=== PATIENT | male | born 1955 | race Caucasian/White ===

== ENCOUNTER 2024-02-26 20:00 | Inpatient (IN) | payer BC, SELFPAY ==
[2024-02-26] VITALS (8 sets, daily range): BP systolic 123–148; BP diastolic 64–89; BMI 24.8
[2024-02-26 12:38] LABS: % Basophils 0.8 % (0-2); % Eosinophils 0.6 % (0-6); % Immature Granulocytes 0.4 % (0-0.5); % Lymphocytes 7.9 % (20.5-51.1); % Monocytes 4.8 % (1.7-9.3); % Neutrophils 85.5 % (42.2-75.2); Absolute Basophils 0.1 10^3/uL (0-0.2); Absolute Eosinophils 0.1 10^3/uL (0-0.7); Absolute Lymphocytes 0.6 10^3/uL (1.2-3.4); Absolute Monocytes 0.4 10^3/uL (0.1-0.6); Absolute Neutrophils 6.8 10^3/uL (1.4-6.5); Hematocrit 38.5 % (39.0-52.0); Hemoglobin 13.5 g/dL (13.0-18.0); Mean Corp Hgb Conc. 35.1 g/dL (33.0-37.0); Mean Corpuscular Hgb 34.2 pg (27.0-31.0); Mean Corpuscular Volume 97.5 fL (80.0-94.0); Mean Platelet Volume 10.1 fL (7.4-10.4); Nucleated Red Blood Cells % 0 % (-); Platelet Count 224 10^3/uL (130-400); Red Blood Cell Count 3.95 10^6/uL (4.70-6.10)
--- NOTE | 2024-02-26 12:42 | ED.PDOC.TRB ---
ED Provider Triage
-
Patient seen by provider in Triage?: Seen in Triage
A medical screening examination has been initiated by a qualified medical provider. Based on the assessment performed at this time, it has been determined that an emergent medical condition may exist and the patient has been informed that further
medical evaluation and possible additional diagnostic testing may be needed.
HPI: This is a medical evaluation conducted in person to initiate diagnostic evaluation and provide initial therapeutics. Please see further documentation by the treating clinician.
GENERAL: Alert ,tearful
EYE: No visual abnormalities.
NECK: Trachea midline
ENT: No visible abnormalities.
LUNGS: No acute respiratory distress
NEUROLOGICAL: Alert and oriented
SKIN: no visible lesions.
MUSCULOSKELETAL: Moving extremities normally
PSYCH: Normal and appropriate interaction.
68-year-old male presenting to the emergency department fluctuating abdominal pain earlier today. He claims that the pain is diffuse and feels somewhat similar to previous bowel obstructions he has had in the past. Mild pain tenderness when
palpating the abdomen. Denies associated nausea vomiting. Denies any flatus this morning. Denies any chest pain or shortness of breath. CT scan was ordered for further assessment. Patient also is significantly. Pain medication was ordered as
well.
[2024-02-26] MEDS: ZOFRAN 4 MG IV (12:43)
[2024-02-26] MEDS: DILAUDID 1 MG IV ×4 (12:43→23:53)
[2024-02-26] MEDS: NSS 500 IV (12:43)
[2024-02-26 12:53] LABS: ALT (SGPT) 24 U/L (0-50); AST (SGOT) 27 U/L (17-59); Albumin 4.2 g/dl (3.5-5.0); Alkaline Phosphatase 63 U/L (38-126); Blood Urea Nitrogen 15 mg/dl (9-20); Calcium 9.6 mg/dl (8.4-10.2); Carbon Dioxide 23 mmol/L (22-30); Chloride 107 mmol/L (98-107); Estimated Creatinine Clearance 77 ml/min; Glucose 120 mg/dl (70-99); Lipase 59 U/L (23-300); Sodium 139 mmol/L (135-145); Total Protein 6.5 g/dl (6.3-8.2); eGFR > 60.00
--- NOTE | 2024-02-26 13:16 | ED.GENMED ---
History of Present Illness
General
Chief Complaint: Abdominal Pain
Source: patient
Exam Limitations: none
Time Seen by Provider: 02/26/24 13:05
Nursing documentation reviewed up to this point in time: agreed with
History of Present Illness
History of Present Illness:
68 y/o M with h/o remote SBO (? volvulus) s/p partial resection
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
pt has had nausea, no vomiting, diarrhea, urinary symptoms
last bm this morning
unable to pass gas, usually has a lot of gas
no chest pain, sob, fever, chills
thinks this may be similar to previous bowel obstruction
Past History
Past History
ED Past Medical History: Other (SBO)
ED Past Surgical History: Bowel resection
Social History
Tobacco: Non-smoker
Review of Systems
Review of Systems
Allergies reviewed?: Yes
All Other Systems: Not applicable
Phy Exam
Physical Exam
Physical Exam:
GENERAL: Alert , in no apparent distress
EYE: pupils equal and reactive
NECK: Supple
ENT: o/p clr, mmm.
CARDIAC: Regular rate and rhythm .
LUNGS: Clear breath sounds bilaterally, no acute respiratory distress, no wheezes/rales/rhonchi
ABDOMEN: Soft, mild distention, questionable ventral hernia palpated, easily reduced, d hypoactive bowel sounds, nontender
NEUROLOGICAL: Alert and oriented, no focal neuro deficits
SKIN: Warm and dry, skin intact. Pale
MUSCULOSKELETAL: No edema, well perfused.
PSYCH: Normal and appropriate interaction.
Course
Orders/Labs/Results
Orders:
Orders
02/26/24 12:26
CMP [Comprehensive Metabolic Panel] Urgent
Complete Blood Count/With Diff Urgent
Lipase Urgent
02/26/24 12:32
0.9% Sodium Chloride 500 ml [Nss] 500 ml IV BOLUS
HYDROmorphone [Dilaudid] 1 mg IV NOW STA
Ondansetron Injectable [Zofran] 4 mg IV NOW STA
02/26/24 12:34
CT Abd/Pel (IV only)-DH only Urgent
Comment:
Reason For Exam: diffuse abd pain
02/26/24 13:36
Electrocardiogram (*1) Urgent
Reason for Study: Abdominal Pain
EKG- Treatment ONCE
02/26/24 13:48
Urinalysis Reflex To Culture Urgent
Date Specimen was Collected: 02/26/24
Time Specimen was Collected: 13:46
02/26/24 15:34
0.9% Sodium Chloride 1000 ml [Nss] 1,000 ml IV BOLUS
02/26/24 15:37
Lactic Acid Urgent
02/26/24 15:47
HYDROmorphone [Dilaudid] 1 mg IV NOW STA
02/26/24 15:49
Consult Surgery [SURGICAL CONSULT] Urgent
Consulting Provider: Stef Finney
Was physician already notified: Yes
02/26/24 16:31
NG Tube [GI tube insertion- Treatment] ONCE
02/26/24 16:57
Admit Patient As Directed
Co-Sign Provider:
Level of Care: Inpatient admission
Assign to:: Medical/Surgical
Physician / Group: Reg
Diagnosis: SBO
Reason for Hospitalization: SBO
Expected length of stay greater than two midnights?: Yes
ELOS- Estimated Length of Stay in days: 3
I certify the patient meets the requirements for IP care: Yes
Code Status As Directed
Resuscitation Status: Full Code
Acetaminophen 1000MG/100Ml [Ofirmev] 1,000 mg in 100 ml IV Q6HPRN
Acetaminophen IV Indication:: Ileus/Delayed Bowel Func.
HYDROmorphone [Dilaudid] 0.5 mg IV Q2HPRN PRN
HYDROmorphone [Dilaudid] 1 mg IV Q2HPRN PRN
Ondansetron Injectable [Zofran] 4 mg IV Q6HPRN PRN
Activity As Directed
Activity Level: Out of Bed-Early Mobility
Anti-embolism (ABA) Hose As Directed
Type: Thigh high
Intake/ Output As Directed
Frequency: Per unit guidelines
NG Tube [Gastrointestinal Tubes] As Directed
Type: [place] sump
To suction?: Yes
Type of suction: Low intermittent
Directions to clamp NG tube: OK to clamp for ambulation
Irrigate tube?: No
Vital Signs As Directed
Frequency: Per unit guidelines
PRN Pain Medication Management As Directed
May give lesser potent ordered pain med per pt: Yes
preference::
Protocol:: Medication orders for pain may be administered in a
manner that supports deferring to patient preference
when the pt is:
- Requesting an ordered lesser potent pain medication.
Least to most potent pain medications are defined
as: acetaminophen < NSAID < tramadol < opioids
(morphine, oxycodone, hydromorphone).
- Requesting a lesser dose of the same medication IF
ORDERED.
- Requesting a less intrusive route of administration
if both routes are prescribed by the provider (PO <
IV).
02/26/24 16:59
Pneumatic Compression Sleeves As Directed
Type: Knee high
DX Deep Vein Thrombosis Video Routine
02/26/24 17:00
KCl 20 Meq/D5.45%Sodchl 1000ML [D5/0.45%NSS with KCL 20 MEQ] 20 meq in 1,000 ml IV 125 mls/hr
02/26/24 18:00
Enoxaparin Sodium [Lovenox] 40 mg SC QPM
02/27/24 05:32
Basic Metabolic Panel IN AM
Complete Blood Count/No Diff IN AM
02/27/24 Breakfast
NPO
Allow oral meds: No
Allow clear liquids: No
NPO with Ice Chips: Yes
Abnormal Lab Results
02/26/24
12:26
RBC 3.95 L 10^6/uL
(4.70-6.10)
Hct 38.5 L %
(39.0-52.0)
MCV 97.5 H fL
(80.0-94.0)
MCH 34.2 H pg
(27.0-31.0)
Absolute Neuts (auto) 6.8 H 10^3/uL
(1.4-6.5)
Absolute Lymphs (auto) 0.6 L 10^3/uL
(1.2-3.4)
Neutrophils % 85.5 H %
(42.2-75.2)
Lymphocytes % 7.9 L %
(20.5-51.1)
Glucose 120 H mg/dl
(70-99)
Total Bilirubin 3.0 H mg/dl
(0.2-1.3)
02/26/24 12:26
02/26/24 12:26
Vital Signs
Initial and Last Documented VS:
Initial Vital Signs
Temp Pulse Resp BP Pulse Ox
97.6 F 54 18 123/84 99
02/26/24 12:16 02/26/24 12:16 02/26/24 12:16 02/26/24 12:16 02/26/24 12:16
Last Documented Vital Signs
Temp Pulse Resp BP Pulse Ox
98.6 F 83 12 103/79 95
02/27/24 16:30 02/27/24 16:30 02/27/24 16:30 02/27/24 16:30 02/27/24 16:30
MDM/Problems Addressed
Differential Diagnosis Includes:
ACS, AAA, bowel obstruction, kidney stone
MDM/Problems Addressed:
68 y/o M with h/o remote bowel obstruction (sounds like he had an internal hernia then too, had partial resection)
started with abd pain this morning at 930 with distension; no vomiting; pain was severe on arrival; he has distension but it is soft, nontender after pain meds when i saw him and dec bowel sounds
stable vitals
ct shows:IMPRESSION:
1. Small bowel obstruction as detailed above. Mildly dilated gas-filled loops of small bowel in the anterior abdomen, anterior to the transverse colon. In the right abdomen, there is swirling of small bowel loops and mesenteric vessels, internal
hernia is a consideration. There are also significant mesenteric edematous changes, therefore strangulation is a differential consideration. No pneumatosis or pneumoperitoneum is identified.
2. 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
i spoke with dr. finney from surgery who requested NGT and to be admitted for his service.
*Critical Care Note
Total Time (30-74mins, 75-104mins- exclusive of procedures): Not Applicable
ED Attending Note
-
Portions of this chart may have been created with voice recognition software.� Occasional wrong word or��sound alike� substitutions may have occurred due to the inherent limitations of voice recognition software.
Discharge Plan
Departure
Patient Disposition: Admit
Date of Disposition: 02/26/24
Time of Disposition: 16:06
Admit to: Med/Surg
Presentation/result/management discussed w/ accepting /: reg
Condition: Fair
Covid-19: Not Applicable
Discharge Problem:
Internal hernia, SBO (small bowel obstruction)
Interventions
Interventions:
*Risk Screen - Suicide Last Done: 02/26/24 12:53
*General Assessment Last Done: 02/26/24 12:53
*Neglect/Abuse Screening Last Done: 02/26/24 12:53
ED- Fall Risk Assessment Last Done: 02/26/24 12:53
*ED COVID-19 Vaccine History Last Done: 02/26/24 12:16
*Nursing Disposition Last Done: 02/27/24 13:22
VJ-Pirdmy-Eqspxsulgt Assessment Last Done: 02/26/24 12:53
Discharge Date and Time
Discharge Date/Time: 02/27/24 13:15
[2024-02-26 14:03] LABS: Urine Albumin Negative (Neg - Trace); Urine Bilirubin Negative (Negative); Urine Character Clear (Clear); Urine Color Yellow; Urine Glucose Negative (Negative); Urine Ketone Negative (Negative); Urine Leukocyte Negative (Negative); Urine Nitrite Negative (Negative); Urine Occult Blood Negative (Negative); Urine Specific Gravity 1.015 (<1.030); Urine Urobilinogen Negative (Neg - 1+)
[2024-02-26] MEDS: NSS 1000 IV (15:39)
[2024-02-26 16:12] LABS: Lactic Acid 0.8 mmol/L (0.7-2.0)
--- NOTE | 2024-02-26 17:02 | CON.GS ---
Consultation
-
Requesting Provider: Jose
Performing Provider: Reg
Reason for Consultation: SBO
Medical History
-
Chief Complaint: Abd pain
History of Present Illness:
68M with acute onset abd pain that began this am around 9:30. The pain was progressive, severe, localized to upper abd, with radiation to his back. He endorses nausea earlier though he denies it presently. He denies vomiting. He denies f/c. Last BM
this am was normal. No flatus since then. Presently he says his pain is resolved.
Past Medical History
Past Medical History: GERD, Psychiatric (ADHD) and Other (BPH)
Past Surgical History: Other (ex-lap with bowel resection for SBO (remote))
Social History
Tobacco: Non-Smoker
Drug: None
Personal:
Living: With Family
Family History
Family History: Reviewed & Noncontributory
Allergies / Home Medications
Allergy/AdvReac Type Severity Reaction Status Date / Time
bacitracin Allergy Rash Verified 02/26/24 12:22
[From Neosporin
([id number])]
latex Allergy Rash Verified 02/26/24 12:22
neomycin [Neomycin] Allergy rash, Verified 02/26/24 12:22
itching
polymyxin B Allergy Rash Verified 02/26/24 12:22
[From Neosporin
([id number])]
�Medication �Instructions �Recorded �Confirmed �Type
cetirizine 10 mg tablet (Zyrtec) 10 mg PO DAILYPRN PRN allergies 02/26/24 02/26/24 History
cholecalciferol (vitamin D3) 50 50 mcg PO DAILY 02/26/24 02/26/24 History
mcg (2,000 unit) tablet (Vitamin
D3)
cyanocobalamin (vitamin B-12) 1,000 mcg PO DAILY 02/26/24 02/26/24 History
1,000 mcg tablet
famotidine 40 mg tablet 40 mg PO HS 02/26/24 02/26/24 History
finasteride 5 mg tablet 5 mg PO DAILY 02/26/24 02/26/24 History
methylphenidate HCl 36 mg 36 mg PO DAILY 02/26/24 02/26/24 History
tablet,extended release 24 hr
tamsulosin 0.4 mg capsule 0.4 mg PO DAILY 02/26/24 02/26/24 History
Review of Systems
-
A 10 point review of systems was completed, and was negative except as per HPI.
Physical Exam
Vital Signs
Temp Pulse Resp BP Pulse Ox
97.6 F 62 18 136/86 97
02/26/24 12:16 02/26/24 14:00 02/26/24 14:00 02/26/24 15:51 02/26/24 15:52
02/25/24 02/26/24 02/27/24
06:59 06:59 06:59
Actual Weight 87.543 kg
Body Mass Index (BMI) 24.8
Lab Results
02/26/24 12:26
02/26/24 12:26
WBC 8.0 10^3/uL (4.8-10.8) 02/26/24 12:26
Hgb 13.5 g/dL (13.0-18.0) 02/26/24 12:26
Hct 38.5 % (39.0-52.0) L 02/26/24 12:26
Plt Count 224 10^3/uL (130-400) 02/26/24 12:26
Abs Immat Gran (auto) 0.0 10^3/uL (0-0.05) 02/26/24 12:26
Neutrophils % 85.5 % (42.2-75.2) H 02/26/24 12:26
Physical Exam
General: Well Developed, Well Nourished and No Apparent Distress
HEENT: Normocephalic and Anicteric
GI: Soft, Non Tender and Distended (mildly distended)
Skin: Warm and Dry
Neuro: AO x 3
Psych: Calm
Data Reviewed
-
CT Scan: Image Personally Visualized and interpreted, Report Reviewed by me, Discussed with Physician, Discussed with Patient and Discussed with Family
Labs: Labs Reviewed by me, Discussed with Physician, Discussed with Patient and Discussed with Family
Assessment / Plan
-
68M with pSBO likely from adhesions
Abd exam totally benign other than very mild distention, absolutely no ttp
Labs essentially unremarkable (Tbili 3.0 noted, likely Gilbert's)
CT A/P with LUQ process involving small bowel, apparent transition point in this area and edematous appearing mesentery without pneumatosis, PV gas or free air, severely distended stomach
Given how benign his exam is, and lack of pain, will defer surgery for now
Plan:
Admit to surgery
Recommend NGT to LIWS
NPO/IVF
PRN pain meds and anti-emetics
DVT ppx
Am labs
[2024-02-26] MEDS: LOVENOX 40 MG SC (17:48)
[2024-02-26] MEDS: D5/0.45%NSS with KCL 20 MEQ 1000 IV (17:49)
[2024-02-26] MEDS: DILAUDID 0.5 MG IV ×2 (17:56→22:12)
[2024-02-27] VITALS (16 sets, daily range): BP systolic 103–139; BP diastolic 60–89
[2024-02-27] MEDS: D5/0.45%NSS with KCL 20 MEQ 1000 IV ×2 (01:34→10:04)
[2024-02-27] MEDS: ZOFRAN 4 MG IV ×2 (01:58→09:52)
[2024-02-27] MEDS: DILAUDID 1 MG IV ×2 (01:58→04:01)
[2024-02-27] MEDS: OFIRMEV 100 IV (02:13)
--- NOTE | 2024-02-27 02:24 | EDRN ---
This RN informed admitting team that pt. has been consistently c/o lower abdominal pain and has been requesting PRN pain medications, as pt. had not been c/o pain when surgery evaluated pt. Admitting is aware.
[2024-02-27 06:22] LABS: Hematocrit 40.1 % (39.0-52.0); Hemoglobin 13.8 g/dL (13.0-18.0); Mean Corp Hgb Conc. 34.4 g/dL (33.0-37.0); Mean Corpuscular Hgb 33.9 pg (27.0-31.0); Mean Corpuscular Volume 98.5 fL (80.0-94.0); Mean Platelet Volume 10.4 fL (7.4-10.4); Platelet Count 255 10^3/uL (130-400); Red Blood Cell Count 4.07 10^6/uL (4.70-6.10); Red Cell Dist. Width 12.2 % (11.5-14.5); White Blood Cell Count 13.5 10^3/uL (4.8-10.8)
[2024-02-27 07:38] LABS: Blood Urea Nitrogen 16 mg/dl (9-20); Calcium 8.8 mg/dl (8.4-10.2); Carbon Dioxide 23 mmol/L (22-30); Chloride 105 mmol/L (98-107); Estimated Creatinine Clearance 94 ml/min; Glucose 181 mg/dl (70-99); Potassium 5.1 mmol/L (3.5-5.1); Sodium 137 mmol/L (135-145); eGFR > 60.00
[2024-02-27 08:10] LABS: Hepatitis C Antibody Negative (Negative)
[2024-02-27] MEDS: OMNIPAQUE 50 ML PO (09:42)
[2024-02-27] MEDS: DILAUDID 0.5 MG IV ×2 (10:07→15:57)
--- NOTE | 2024-02-27 10:58 | PTCARENOTE ---
surgery notified pt struggling to tolerate contrast through NG
--- NOTE | 2024-02-27 11:14 | W.PN.GS2 ---
Today's Communication / Plan
-
Rpt CT
Assessment / Plan
-
68M with intermittent abd pain and concern for SBO
WBC trending up
Unclear why his pain comes and goes this way, will proceed with PO contrast CT
Further mgmt will be guided by his pain and imaging findings
Subjective Data
-
Date of Service: February 27, 2024
AFVSS, after my encounter yesterday he developed pain that lasted through most of the night, he fell asleep at 4am and woke up pain free at 7am. Presently he denies pain. He has not passed gas. He dneies n/v with NGT to suction.
Objective Data
-
Intake and Output
02/26/24 02/27/24 02/28/24
06:59 06:59 06:59
Output Total 200 / 200
Balance -200 / -200
Output:
Urine, Voided 200 / 200
Vital Signs
Temp Pulse Resp BP Pulse Ox
98.1 F 59 10 129/84 98
02/27/24 07:00 02/27/24 07:00 02/27/24 07:00 02/27/24 07:00 02/27/24 08:47
Lab Results
02/27/24 05:32
02/27/24 05:32
Calcium 8.8 mg/dl (8.4-10.2) 02/27/24 05:32
Total Bilirubin 3.0 mg/dl (0.2-1.3) H 02/26/24 12:26
AST 27 U/L (17-59) 02/26/24 12:26
ALT 24 U/L (0-50) 02/26/24 12:26
Alkaline Phosphatase 63 U/L (38-126) 02/26/24 12:26
Total Protein 6.5 g/dl (6.3-8.2) 02/26/24 12:26
Albumin 4.2 g/dl (3.5-5.0) 02/26/24 12:26
Physical Exam
-
Gen: NAD
Abd: soft, nt, nd, NGT canister clear/pale yellow
--- NOTE | 2024-02-27 12:52 | W.PN.SURGUPD ---
Surgical Update
Surgical Update
Patient with worsening episodes of abdominal pain, nausea, and vomiting over the past 24 hours. Abdominal exam remains relatively benign with soft and minimal tenderness, distention noted, nonperitoneal. AVSS. Elevated WBC, normal lactate.
Repeat CT scan imaging demonstrates worsening small bowel distention with increased ascites, swelling of the mesentery concern for need for a closed-loop obstruction.
Recommend and plan for surgical management. Plan for exploratory laparotomy, lysis of adhesions, possible bowel resection. The procedure itself, as well as the risks, benefits, and alternatives was discussed. Specifically, we discussed the risks
of bleeding, infection, injury to surrounding structures (bowel), wound complications, hernia formation, and the general anesthetic complications. Typical postprocedural recovery including delayed return of bowel function and the need for 4 weeks
no heavy lifting was discussed. All questions answered. Consent signed.
--- NOTE | 2024-02-27 12:55 | W.SUR.PREOP ---
Pre-Operative Surgical Note
-
I have examined this patient prior to the performance of the scheduled procedure.
The patient's condition is unchanged from the time of the current History and
Physical and the patient is able to undergo the scheduled procedure.
--- NOTE | 2024-02-27 13:15 | PTCARENOTE ---
Patient transferred to OR
--- NOTE | 2024-02-27 15:25 | W.IMMPOSTOP ---
Addendum entered and electronically signed by Tom Mliler MD 02/27/24 15:59:
[facility]# [id number]
Original Note:
Surgical Immed Post Op Note
-
Primary Surgeon: Angela
Assisting Surgeon: AJ Rainey
Pre-op Diagnosis: SBO
Post-op Diagnosis: SBO
Procedure Performed: Exploratory laparotomy, lysis of adhesions, primary ventral incisional hernia repair
Anesthesia Type: General
Specimen / Cultures: None
Estimated Blood Loss: 7 cc
Complications: None
Operative Findings:
1. Markedly dilated stomach and small bowel, omental band adhesion causing closed loop obstruction
2. 100 cm segment of excoriated SB, viable, proximal transition point pinched but SB contents milked distally without significant stricturing, no resection performed due to concern for remaining SB ~200 cm
3. SB run from LT to distal anastomosis (adhesions within this area, limited lysis performed)
4. 2 cm ventral incisional hernia containing omentum, closed primarily with fascial closure
[2024-02-27] MEDS: NSS 1000 IV ×2 (16:05→22:55)
[2024-02-27] MEDS: TORADOL 10 MG IV (16:47)
--- NOTE | 2024-02-27 17:10 | PTCARENOTE ---
Pt arrived to [facility] [address] s/p SBO. Pt AAOx3, R zeyade NGT to LIWS suctioning dark green/brown, Mitchell in place draining yellow urine, midline incision aquacel dressing with small amount of drainage. Pt states mild pain at this time, no nausea. Pt oriented
to call jiang and room, bed locked and in lowest position, call jiang within reach.
--- NOTE | 2024-02-27 17:14 | CM ---
CM reviewed patient's chart. Spoke with patient at bedside. CM introduced self and role. Patient with NGT to suctioning.
PCP: Dr. Dominic Rankin
Pharmacy: [facility] in [facility]
Living situation: Patient lives with his . He lives in a mulit-level home. 2 steps to enter.
Finances: Patient denies any social insecurities. John is able to afford her housing, clothing, medications, food, utilities and transportation. 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
DME/Ambulation: Patient ambulates independently. He does not own any DME.
Transportation: Patient's will provide transportation once he is discharged. Patient drives.
Agreeable to home health care?: Yes, if needed.
ANTICIPATED DISCHARGE DISPOSITION:
Return to home with once he cleared medically and post-operatively.
CM will continue to follow case and available for further assistance.
[2024-02-27] MEDS: LOVENOX 40 MG SC (17:49)
[2024-02-27] MEDS: PROTONIX IV 40 MG IV (17:50)
[2024-02-27] MEDS: NSS (PRESERVATIVE FREE) 10 ML IV (17:50)
[2024-02-28 03:11] VITALS: BP 113/68
[2024-02-28] MEDS: TORADOL 10 MG IV ×2 (07:05→17:31)
[2024-02-28] MEDS: NSS 1000 IV ×3 (07:10→22:59)
[2024-02-28 07:29] VITALS: BP 135/75
[2024-02-28] MEDS: PROTONIX IV 40 MG IV (07:52)
[2024-02-28 07:54] LABS: Hemoglobin 13.9 g/dL (13.0-18.0); Mean Corp Hgb Conc. 33.9 g/dL (33.0-37.0); Mean Corpuscular Hgb 34.4 pg (27.0-31.0); Mean Corpuscular Volume 101.5 fL (80.0-94.0); Mean Platelet Volume 10.3 fL (7.4-10.4); Platelet Count 226 10^3/uL (130-400); Red Blood Cell Count 4.04 10^6/uL (4.70-6.10); Red Cell Dist. Width 12.5 % (11.5-14.5); White Blood Cell Count 10.9 10^3/uL (4.8-10.8)
[2024-02-28] MEDS: NSS (PRESERVATIVE FREE) 10 ML IV (07:57)
[2024-02-28 08:17] LABS: Blood Urea Nitrogen 20 mg/dl (9-20); Calcium 8.4 mg/dl (8.4-10.2); Carbon Dioxide 27 mmol/L (22-30); Chloride 105 mmol/L (98-107); Estimated Creatinine Clearance 77 ml/min; Glucose 98 mg/dl (70-99); Potassium 4.5 mmol/L (3.5-5.1); Sodium 138 mmol/L (135-145); eGFR > 60.00
--- NOTE | 2024-02-28 10:00 | W.PN.GS2 ---
Addendum entered and electronically signed by Stef Finney MD 02/28/24 10:44:
I saw and examined the patient.
The Steam Conditioning Operator's note was reviewed and I agree with the note.
Comment: Expected post-op ileus, stable, pain controlled, comfortable, exam soft approp ttp aquacel OK, Plan: cont NGT/NPO/IVF, await KATI BRYAN tomorrow
Original Note:
Today's Communication / Plan
-
C/W NGT/NPO/IVF
Assessment / Plan
-
68M p/w with small bowel obstruction
POD #1 Ex lap with CONRAD and primary ventral hernia repair
AFVSS
WBC trending back down, h/h stable post op
Await bowel recovery
--NPO with ice chips for comfort
--C/W NGT to suction
--Analgesics/antiemetics prn
--Increase acitivty/OOB
--C/W IVF while NPO
--C/W deluca today, will remove in AM for voiding trial
--Lovenox 40mg SQ and SCDs for VTE ppx
--IV PPI for GI ppx
Subjective Data
-
Date of Service: February 28, 2024
Patient seen and examined at bedside with Dr. Finney. Denies n/v. No passage of flatus as of yet. C/O sore throat. Pain is minimal.
Objective Data
-
Intake and Output
02/27/24 02/28/24 02/29/24
06:59 06:59 06:59
Intake Total 320 / 320
Output Total 1885 / 2410 525 / 525
Balance -1565 / -0 -525 / -525
Intake:
Oral fluids 120 / 120
IV fluids (Total) 200 / 200
Normsol 200 / 200
Amount instilled into GI Tube ( 0 / 0
Total)
Bremer Sump 0 / 0
Output:
Gastrointestinal tube output ( 675 / 1200 525 / 525
Total)
Bremer Sump 675 / 1200 525 / 525
Urine, Deluca 1010 / 1010
Urine, Voided 200 / 200
Vital Signs
Temp Pulse Resp BP Pulse Ox
98.7 F 78 16 135/75 96
02/28/24 07:29 02/28/24 07:29 02/28/24 07:29 02/28/24 07:29 02/28/24 08:00
Lab Results
02/28/24 07:19
02/28/24 07:19
Calcium 8.4 mg/dl (8.4-10.2) 02/28/24 07:19
Total Bilirubin 3.0 mg/dl (0.2-1.3) H 02/26/24 12:26
AST 27 U/L (17-59) 02/26/24 12:26
ALT 24 U/L (0-50) 02/26/24 12:26
Alkaline Phosphatase 63 U/L (38-126) 02/26/24 12:26
Total Protein 6.5 g/dl (6.3-8.2) 02/26/24 12:26
Albumin 4.2 g/dl (3.5-5.0) 02/26/24 12:26
Physical Exam
-
Gen: NAD
Abd: soft, mild incisional tenderness, nd, NGT canister brown outputs
--- NOTE | 2024-02-28 10:57 | CM ---
Met with patient at bedside; patient s/p abdominal surgery procedure; patient resting in bed; NGT in place
Plan: Dishcharge to home when medially stable; CM will continue to monitor for discharge needs
[2024-02-28 11:10] VITALS: BP 135/78
[2024-02-28] MEDS: OFIRMEV 100 IV (11:14)
[2024-02-28] MEDS: CHLORASEPTIC/SORE THROAT SPRAY 1 SPRAY PO ×3 (11:57→20:49)
[2024-02-28] MEDS: DILAUDID 0.5 MG IV ×2 (14:22→20:48)
[2024-02-28 15:30] VITALS: BP 143/82
[2024-02-28 15:55] VITALS: BMI 24.8
[2024-02-28] MEDS: FLOMAX PO (17:26)
[2024-02-28] MEDS: LOVENOX 40 MG SC (17:27)
[2024-02-28 23:25] VITALS: BP 121/72
[2024-02-28 23:26] VITALS: BP 121/72
[2024-02-29] MEDS: TORADOL 10 MG IV ×3 (02:24→22:00)
[2024-02-29 06:00] VITALS: BMI 25.4; BMI 25.7
[2024-02-29 07:02] LABS: Hematocrit 38.7 % (39.0-52.0); Mean Corp Hgb Conc. 33.6 g/dL (33.0-37.0); Mean Corpuscular Hgb 34.2 pg (27.0-31.0); Mean Corpuscular Volume 101.8 fL (80.0-94.0); Mean Platelet Volume 10.4 fL (7.4-10.4); Platelet Count 202 10^3/uL (130-400); Red Cell Dist. Width 12.2 % (11.5-14.5); White Blood Cell Count 8.8 10^3/uL (4.8-10.8)
[2024-02-29 07:23] LABS: Blood Urea Nitrogen 21 mg/dl (9-20); Calcium 8.2 mg/dl (8.4-10.2); Carbon Dioxide 22 mmol/L (22-30); Chloride 107 mmol/L (98-107); Estimated Creatinine Clearance 94 ml/min; Glucose 84 mg/dl (70-99); Potassium 4.1 mmol/L (3.5-5.1); Sodium 139 mmol/L (135-145); eGFR > 60.00
[2024-02-29 07:40] VITALS: BP 130/75
[2024-02-29] MEDS: NSS (PRESERVATIVE FREE) 10 ML IV (07:46)
[2024-02-29] MEDS: PROTONIX IV 40 MG IV (07:46)
[2024-02-29] MEDS: NSS 1000 IV ×3 (07:47→22:09)
--- NOTE | 2024-02-29 08:24 | W.PN.GS2 ---
Addendum entered and electronically signed by Stef Finney MD 02/29/24 14:44:
I saw and examined the patient.
The Lab Support Technician's note was reviewed and I agree with the note.
Comment: Stable. Pain controlled, denies n/v with NGT to suction. Denies flatus/BM. Exam aprop, minimal distention, aquacel OK. Cont NPO/NGT/IVF, monitor for ROBF
Original Note:
Today's Communication / Plan
-
c/w NGT/NPO/IVF
Assessment / Plan
-
68M p/w with small bowel obstruction
POD #2 Ex lap with CONRAD and primary ventral hernia repair
AFVSS
WBC trending back down, h/h stable post op
Await bowel recovery
--NPO with ice chips for comfort
--C/W NGT to suction
--Analgesics/antiemetics prn
--Increase activity/OOB
--C/W IVF while NPO
--c/w PO flomax 0.4mg
--Lovenox 40mg SQ and SCDs for VTE ppx
--IV PPI for GI ppx
Subjective Data
-
Date of Service: February 29, 2024
Patient seen and examined at bedside. Denies n/v. Not passing flatus as of yet. Post nasal drip and local irritation around NGT. Voiding well since deluca removed.
Objective Data
-
Intake and Output
02/28/24 02/29/24 03/01/24
06:59 06:59 06:59
Intake Total 320 / 320
Output Total 1885 / 2410 2725 / 2725
Balance -1565 / -0 -2724 / -272
Intake:
Oral fluids 120 / 120
IV fluids (Total) 200 / 200
Normsol 200 / 200
Amount instilled into GI Tube ( 0 / 0
Total)
Gilliam Sump 0 / 0
Output:
Gastrointestinal tube output ( 675 / 1200 1525 / 1525
Total)
Gilliam Sump 675 / 1200 1525 / 1525
Urine, Deluca 1010 / 1010 650 / 650
Urine, Voided 200 / 200 550 / 550
Vital Signs
Temp Pulse Resp BP Pulse Ox
99.9 F 67 18 130/75 97
02/29/24 07:40 02/29/24 07:40 02/29/24 07:40 02/29/24 07:40 02/29/24 07:40
Lab Results
02/29/24 06:04
02/29/24 06:04
Calcium 8.2 mg/dl (8.4-10.2) L 02/29/24 06:04
Total Bilirubin 3.0 mg/dl (0.2-1.3) H 02/26/24 12:26
AST 27 U/L (17-59) 02/26/24 12:26
ALT 24 U/L (0-50) 02/26/24 12:26
Alkaline Phosphatase 63 U/L (38-126) 02/26/24 12:26
Total Protein 6.5 g/dl (6.3-8.2) 02/26/24 12:26
Albumin 4.2 g/dl (3.5-5.0) 02/26/24 12:26
Physical Exam
-
Gen: NAD
Abd: soft, mild incisional tenderness, nd, NGT canister brown outputs
[2024-02-29] MEDS: DILAUDID 0.5 MG IV ×2 (10:45→12:46)
[2024-02-29 14:55] VITALS: BP 125/81
[2024-02-29] MEDS: FLOMAX 0.4 MG PO (16:43)
[2024-02-29] MEDS: LOVENOX 40 MG SC (16:44)
[2024-02-29 23:12] VITALS: BP 137/72
--- NOTE | 2024-03-01 02:35 | PTCARENOTE ---
pt reports passing flatus x2 this shift rhus far, continues with moderate amount of nasogastric output.
[2024-03-01] MEDS: NSS 1000 IV ×3 (05:54→21:32)
[2024-03-01] MEDS: TORADOL 10 MG IV ×3 (05:54→22:50)
[2024-03-01 07:45] VITALS: BP 137/84
[2024-03-01 08:42] LABS: Blood Urea Nitrogen 27 mg/dl (9-20); Calcium 8.4 mg/dl (8.4-10.2); Carbon Dioxide 22 mmol/L (22-30); Chloride 108 mmol/L (98-107); Estimated Creatinine Clearance 94 ml/min; Glucose 85 mg/dl (70-99); Magnesium 2.3 mg/dl (1.6-2.3); Potassium 3.5 mmol/L (3.5-5.1); Sodium 142 mmol/L (135-145); eGFR > 60.00
--- NOTE | 2024-03-01 08:52 | W.PN.GS2 ---
Addendum entered and electronically signed by Stef Finney MD 03/01/24 13:47:
I saw and examined the patient.
The Electrical Engineering Manager's note was reviewed and I agree with the note.
Comment: Passing flatus. Pain controlled. Exam approp. Clamp trial today, for cld if passes
Original Note:
Today's Communication / Plan
-
Clamp trial of NGT
Assessment / Plan
-
68M p/w with small bowel obstruction
POD #3 Ex lap with CONRAD and primary ventral hernia repair
AFVSS
Labs for today pending
NGT with 1200ml over 24 hours but now passing flatus
--NPO with ice chips for comfort
--Clamp trial of NGT
--Analgesics/antiemetics prn
--Increase activity/OOB
--C/W IVF
--c/w PO flomax 0.4mg
--Lovenox 40mg SQ and SCDs for VTE ppx
--IV PPI for GI ppx
Subjective Data
-
Date of Service: March 01, 2024
Patient seen and examined at bedside. Denies n/v. Passing flatus. No BM's as of yet. Pain to abdomen is minimal and managed well with current regimen.
Objective Data
-
Intake and Output
02/29/24 03/01/24 03/02/24
06:59 06:59 06:59
Intake Total 100 / 100
Output Total 2725 / 2725 1880 / 188
Balance -2725 / -2725 -1779 / -0
Intake:
Oral fluids 100 / 100
Output:
Gastrointestinal tube output ( 1525 / 1525 1200 / 1200
Total)
[place] Sump 1525 / 1525 1200 / 1200
Urine, Mitchell 650 / 650
Urine, Voided 550 / 550 680 / 680
Vital Signs
Temp Pulse Resp BP Pulse Ox
98.5 F 85 16 137/84 97
03/01/24 07:45 03/01/24 07:45 03/01/24 07:45 03/01/24 07:45 03/01/24 07:45
Lab Results
03/01/24 05:40
Calcium 8.4 mg/dl (8.4-10.2) 03/01/24 05:40
Magnesium 2.3 mg/dl (1.6-2.3) 03/01/24 05:40
Total Bilirubin 3.0 mg/dl (0.2-1.3) H 02/26/24 12:26
AST 27 U/L (17-59) 02/26/24 12:26
ALT 24 U/L (0-50) 02/26/24 12:26
Alkaline Phosphatase 63 U/L (38-126) 02/26/24 12:26
Total Protein 6.5 g/dl (6.3-8.2) 02/26/24 12:26
Albumin 4.2 g/dl (3.5-5.0) 02/26/24 12:26
Physical Exam
-
Gen: NAD
Abd: soft, mild incisional tenderness, nd, NGT canister brown/blood tinged outputs
[2024-03-01] MEDS: PROTONIX IV 40 MG IV (08:57)
[2024-03-01] MEDS: NSS (PRESERVATIVE FREE) 10 ML IV (08:57)
[2024-03-01 09:39] LABS: Hematocrit 34.9 % (39.0-52.0); Hemoglobin 11.8 g/dL (13.0-18.0); Mean Corp Hgb Conc. 33.8 g/dL (33.0-37.0); Mean Corpuscular Volume 100.6 fL (80.0-94.0); Mean Platelet Volume 11.1 fL (7.4-10.4); Platelet Count 193 10^3/uL (130-400); Red Blood Cell Count 3.47 10^6/uL (4.70-6.10); Red Cell Dist. Width 12.1 % (11.5-14.5); White Blood Cell Count 7.8 10^3/uL (4.8-10.8)
--- NOTE | 2024-03-01 12:30 | PTCARENOTE ---
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
[2024-03-01 15:32] VITALS: BP 138/81
[2024-03-01] MEDS: FLOMAX 0.4 MG PO (16:54)
[2024-03-01] MEDS: LOVENOX 40 MG SC (16:54)
[2024-03-01] MEDS: MELATONIN 5 MG PO (21:33)
[2024-03-01 23:01] VITALS: BP 130/81
[2024-03-02 06:34] LABS: Hematocrit 30.6 % (39.0-52.0); Hemoglobin 10.7 g/dL (13.0-18.0); Mean Corpuscular Hgb 34.6 pg (27.0-31.0); Mean Platelet Volume 10.5 fL (7.4-10.4); Platelet Count 184 10^3/uL (130-400); Red Blood Cell Count 3.09 10^6/uL (4.70-6.10); Red Cell Dist. Width 11.8 % (11.5-14.5); White Blood Cell Count 5.3 10^3/uL (4.8-10.8)
[2024-03-02 07:03] LABS: Blood Urea Nitrogen 26 mg/dl (9-20); Calcium 8.2 mg/dl (8.4-10.2); Carbon Dioxide 26 mmol/L (22-30); Chloride 109 mmol/L (98-107); Estimated Creatinine Clearance 94 ml/min; Glucose 94 mg/dl (70-99); Potassium 3.4 mmol/L (3.5-5.1); Sodium 142 mmol/L (135-145); eGFR > 60.00
[2024-03-02 07:23] VITALS: BP 146/81
[2024-03-02] MEDS: NSS 1000 IV (08:41)
[2024-03-02] MEDS: PROTONIX IV 40 MG IV (08:43)
[2024-03-02] MEDS: NSS (PRESERVATIVE FREE) 10 ML IV (08:43)
--- NOTE | 2024-03-02 09:05 | W.PN.GS2 ---
Addendum entered and electronically signed by Sen Stephenson MD 03/02/24 12:25:
I saw and examined the patient independently.
The resident's note was reviewed and I agree with the note, assessment and plan except where noted below.
Comment: 68-year-old male who presented with a small bowel obstruction now postoperative day 4 exploratory laparotomy lysis of adhesions and primary ventral hernia repair. Doing well, expected postoperative course.
Advance to a low residue diet
DVT prophylaxis
Out of bed and ambulate
Incentive spirometry
Original Note:
Today's Communication / Plan
-
Patient able to tolerate clear liqudi diet, advanced diet to low residue. Monitor if patient can tolerate. Patient okay to continue shower. Continue regular ambulation.
Assessment / Plan
-
Assessment:
68M p/w with small bowel obstruction POD #4 Ex lap with CONRAD and primary ventral hernia repair
Plan:
AFVSS
--Patient able to tolerate clear liquid diet, advanced to low residue diet
--Analgesics/antiemetics prn
--Mild anemia due to hemodilution
--Increase activity/OOB
--C/W IVF
--c/w PO flomax 0.4mg
--Lovenox 40mg SQ and SCDs for VTE ppx
--IV PPI for GI ppx
Subjective Data
-
Date of Service: March 02, 2024
Patient has been feeling better and was able to tolerate a clear liquid diet. Patient has not had a bowel movement as of yet but has been passing flatulence regularly. Patient was able to sleep well last night and says that he has been ambulating
well.
Objective Data
-
Intake and Output
03/01/24 03/02/24 03/03/24
06:59 06:59 06:59
Intake Total 100 / 100 2640 / 2640
Output Total 1880 / 1880 650 / 650
Balance -1780 / -1780 1989 / 1989
Intake:
Oral fluids 100 / 100 1440 / 1440
IV fluids (Total) 1200 / 1200
Output:
Gastrointestinal tube output ( 1200 / 1200 100 / 100
Total)
[place] Sump 1200 / 1200 100 / 100
Urine, Voided 680 / 680 550 / 550
Other:
Number of approximated MODERATE 2
amounts of urine
Vital Signs
Temp Pulse Resp BP Pulse Ox
98.4 F 59 18 146/81 97
03/02/24 07:23 03/02/24 07:23 03/02/24 07:23 03/02/24 07:23 03/02/24 07:23
Lab Results
03/02/24 06:06
03/02/24 06:06
Calcium 8.2 mg/dl (8.4-10.2) L 03/02/24 06:06
Magnesium 2.3 mg/dl (1.6-2.3) 03/01/24 05:40
Total Bilirubin 3.0 mg/dl (0.2-1.3) H 02/26/24 12:26
AST 27 U/L (17-59) 02/26/24 12:26
ALT 24 U/L (0-50) 02/26/24 12:26
Alkaline Phosphatase 63 U/L (38-126) 02/26/24 12:26
Total Protein 6.5 g/dl (6.3-8.2) 02/26/24 12:26
Albumin 4.2 g/dl (3.5-5.0) 02/26/24 12:26
Physical Exam
-
Gen: NAD
Abd: soft, mild incisional tenderness, nd
[2024-03-02] MEDS: TORADOL 10 MG IV ×2 (13:01→23:24)
[2024-03-02 15:03] VITALS: BP 114/65
[2024-03-02] MEDS: LOVENOX 40 MG SC (17:21)
[2024-03-02] MEDS: FLOMAX 0.4 MG PO (17:21)
[2024-03-02] MEDS: MELATONIN 5 MG PO (22:31)
[2024-03-02 23:11] VITALS: BP 120/74
[2024-03-03] MEDS: PROTONIX IV 40 MG IV (07:27)
[2024-03-03] MEDS: NSS (PRESERVATIVE FREE) 10 ML IV (07:27)
[2024-03-03 07:30] LABS: ALT (SGPT) 17 U/L (0-50); AST (SGOT) 20 U/L (17-59); Albumin 2.6 g/dl (3.5-5.0); Alkaline Phosphatase 49 U/L (38-126); Blood Urea Nitrogen 20 mg/dl (9-20); Calcium 8.4 mg/dl (8.4-10.2); Carbon Dioxide 25 mmol/L (22-30); Chloride 108 mmol/L (98-107); Estimated Creatinine Clearance 106 ml/min; Glucose 99 mg/dl (70-99); Phosphorus 3.5 mg/dl (2.5-4.5); Potassium 3.3 mmol/L (3.5-5.1); Sodium 140 mmol/L (135-145); Total Bilirubin 1.4 mg/dl (0.2-1.3); Total Protein 4.8 g/dl (6.3-8.2); eGFR > 60.00
--- NOTE | 2024-03-03 07:38 | W.PN.GS2 ---
Addendum entered and electronically signed by Tom Miller MD 03/03/24 08:47:
Patient seen and examined.
No major complaints. Denies increased bloating, nausea, or vomiting. Reports passing flatus and stools. Tolerating LRD. No fevers. Voiding. Ambulating.
Gen: NAD
Abd: soft, NT/ND, non-peritoneal, incision c/d/i - mild ecchymosis at caudal aspect, no erythema, or drainage, ian in place, gauze replaced overlying
Patient is a 68 yo M POD #5 Ex lap with CONRAD and primary ventral hernia repair.
AVSS
Tolerating LRD and ROBF
Recovering well, clinically stable for discharge
Plan:
--LRD
--Pain control: Tylenol, Toradol, Oxycodone
--Mild anemia due to hemodilution yesterday
--Increased activity/OOB
--Home meds
--Lovenox 40mg SQ and SCDs for VTE ppx
--DC today
Original Note:
Today's Communication / Plan
-
Patient to be discharged home with instructions to see Surgery in outpatient setting in 1-2 weeks to take out ian and follow up.
Assessment / Plan
-
Assessment:
68M p/w with small bowel obstruction POD #5 Ex lap with CONRAD and primary ventral hernia repair. Patient has been ambulating and tolerating his diet well, and is stable enough to be discharged
Plan:
AFVSS
--Patient able to tolerate low residue diet
--Analgesics/antiemetics prn
--Mild anemia due to hemodilution yesterday
--Increased activity/OOB
--Patient hemodynamically stable, to be discharged today
--Lovenox 40mg SQ and SCDs for VTE ppx
Subjective Data
-
Date of Service: March 03, 2024
Patient has been feeling well, and was able to tolerate a low residue diet yesterday. Patient had a large bowel movement last night and has continued to pass flatulence regularly. Patient had no adverse events overnight and has no complaints.
Objective Data
-
Intake and Output
03/02/24 03/03/24 03/04/24
06:59 06:59 06:59
Intake Total 2640 / 2640 3460 / 3460
Output Total 650 / 650 200 / 200
Balance 1989 / 1989 3260 / 3260
Intake:
Oral fluids 1440 / 1440 1960 / 1960
IV fluids (Total) 1200 / 1200 1500 / 1500
Output:
Gastrointestinal tube output ( 100 / 100
Total)
[place] Sump 100 / 100
Urine, Voided 550 / 550 200 / 200
Other:
Number of approximated MODERATE 2 1
amounts of urine
Vital Signs
Temp Pulse Resp BP Pulse Ox
98.7 F 54 22 120/74 94
03/02/24 23:11 03/02/24 23:11 03/02/24 23:11 03/02/24 23:11 03/02/24 23:11
Lab Results
03/03/24 05:54
Calcium 8.4 mg/dl (8.4-10.2) 03/03/24 05:54
Phosphorus 3.5 mg/dl (2.5-4.5) 03/03/24 05:54
Magnesium 2.0 mg/dl (1.6-2.3) 03/03/24 05:54
Total Bilirubin 1.4 mg/dl (0.2-1.3) H 03/03/24 05:54
AST 20 U/L (17-59) 03/03/24 05:54
ALT 17 U/L (0-50) 03/03/24 05:54
Alkaline Phosphatase 49 U/L (38-126) 03/03/24 05:54
Total Protein 4.8 g/dl (6.3-8.2) L 03/03/24 05:54
Albumin 2.6 g/dl (3.5-5.0) L 03/03/24 05:54
Physical Exam
-
Gen: NAD
Abd: soft, mild incisional tenderness, some bruising noted near ian, nd
[2024-03-03 07:39] VITALS: BP 138/78
[2024-03-03 08:23] LABS: % Basophils 1.2 % (0-2); % Eosinophils 7.9 % (0-6); % Immature Granulocytes 0.5 % (0-0.5); % Lymphocytes 10.5 % (20.5-51.1); % Monocytes 8.9 % (1.7-9.3); Absolute Basophils 0.1 10^3/uL (0-0.2); Absolute Eosinophils 0.5 10^3/uL (0-0.7); Absolute Lymphocytes 0.6 10^3/uL (1.2-3.4); Absolute Monocytes 0.5 10^3/uL (0.1-0.6); Absolute Neutrophils 4.1 10^3/uL (1.4-6.5); Hematocrit 31.8 % (39.0-52.0); Hemoglobin 11.2 g/dL (13.0-18.0); Mean Corp Hgb Conc. 35.2 g/dL (33.0-37.0); Mean Corpuscular Hgb 33.6 pg (27.0-31.0); Mean Corpuscular Volume 95.5 fL (80.0-94.0); Mean Platelet Volume 10.8 fL (7.4-10.4); Nucleated Red Blood Cells % 0 % (-); Platelet Count 231 10^3/uL (130-400); Red Blood Cell Count 3.33 10^6/uL (4.70-6.10); Red Cell Dist. Width 11.8 % (11.5-14.5); White Blood Cell Count 5.7 10^3/uL (4.8-10.8)
--- NOTE | 2024-03-03 08:47 | W.DS.TRANS ---
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
-
Discharge Instructions:
Discharge Diagnosis/Procedures Small bowel obstruction s/p exploratory
laparotomy and lysis of adhesions
Diet Low Fiber
Additional Diets Follow a low fiber or low residue diet for 1 to
2 weeks, will assess advancement back to regular
at outpatient follow-up
Activity No strenuous activity
Additional Activity No heavy lifting (>20 lbs) or strenuous
activities for 4 weeks postoperatively
Driving Restrictions No driving if too sore or taking narcotics
Bathing Restrictions OK to Shower
Wound Care Keep incision clean and dry. Cover area with
dry gauze as needed for drainage or to prevent
pulling on the ian. [place] will be removed
in the office in 1 to 2 weeks.
Instructions:
Stand-Alone Forms:
Changes to Home Medications: Yes
Discharge Medications:
DC Medications w/original date entered in [employer]
cetirizine 10 mg tablet (Zyrtec) 10 mg PO DAILYPRN PRN allergies 02/26/24
cholecalciferol (vitamin D3) 50 mcg (2,000 unit) tablet (Vitamin D3) 50 mcg PO DAILY Supplement 02/26/24
cyanocobalamin (vitamin B-12) 1,000 mcg tablet 1,000 mcg PO DAILY Supplement 02/26/24
famotidine 40 mg tablet 40 mg PO HS Gastrointestinal Issue 02/26/24
finasteride 5 mg tablet 5 mg PO DAILY PROSTATE ISSUES 02/26/24
methylphenidate HCl 36 mg tablet,extended release 24 hr 36 mg PO DAILY Neurological Condition 02/26/24
tamsulosin 0.4 mg capsule 0.4 mg PO DAILY Urinary Issue 02/26/24
acetaminophen 325 mg tablet 650 mg (2 x 325 mg) PO Q4HPRN PRN mild pain #1 tab 03/03/24
ibuprofen 200 mg tablet 400 - 600 mg (2 - 3 x 200 mg) PO Q6HPRN PRN moderate pain #1 tab 03/03/24
oxycodone 5 mg tablet 5 mg PO Q4HPRN PRN breakthrough/severe pain #10 tabs 03/03/24
Home Medication Changes
Pending Results: No
--- NOTE | 2024-03-03 10:03 | CM ---
Pt for discharge today
Has ride home with family member
Plan - anticipate home no needs
== END 2024-03-03 11:00 | disposition home or self-care (01) | DRG 337 ==
LOC: 2 SOUTH 20:00
PROVIDERS: Physician Assistant; Registered Nurse; Surgery; ADMITTING PHYSICIAN Surgery; EMERGENCY PHYSICIAN Emergency Medicine; FAMILY PHYSICIAN Family Medicine
PROC: 0WQF0ZZ Repair Abdominal Wall, Open Approach (ICD-10-PCS; 2024-02-27)
PROC: 0DNU0ZZ Release Omentum, Open Approach (ICD-10-PCS; 2024-02-27)
PROC: 0D9670Z Drainage of Stomach with Drainage Device, Via Natural or Artificial Opening (ICD-10-PCS; 2024-02-27)
DX: K56.51 Intestinal adhesions [bands], with partial obstruction (principal); K43.2 Incisional hernia without obstruction or gangrene; F90.9 Attention-deficit hyperactivity disorder, unspecified type; K21.9 Gastro-esophageal reflux disease without esophagitis; N40.0 Benign prostatic hyperplasia without lower urinary tract symptoms; K56.7 Ileus, unspecified; Z88.1 Allergy status to other antibiotic agents; Z91.040 Latex allergy status; Z90.49 Acquired absence of other specified parts of digestive tract
CPT/HCPCS: 74177; 80048; 80053; 81003; 83605; 83690; 83735; 84100; 85025; 85027; 86803; 93005; 96361; 96374; 96375; 96376; 99285; Q9967

== ENCOUNTER → 2024-05-21 08:35 | Outpatient (REF) | payer BC, SELFPAY | LOC: RAD 08:35 | PROVIDERS: ATTENDING PHYSICIAN Surgery; FAMILY PHYSICIAN Family Medicine | DX: R10.84 Generalized abdominal pain (principal) | CPT/HCPCS: 74177; Q9967 ==

== ENCOUNTER 2024-07-16 06:46 | Day surgery (SDC) | payer BC, SELFPAY ==
[2024-07-13 11:28] LABS: Hematocrit 40.3 % (39.0-52.0); Hemoglobin 13.7 g/dL (13.0-18.0); Mean Corpuscular Hgb 34.3 pg (27.0-31.0); Mean Corpuscular Volume 100.8 fL (80.0-94.0); Mean Platelet Volume 10.4 fL (7.4-10.4); Platelet Count 265 10^3/uL (130-400); Red Cell Dist. Width 11.9 % (11.5-14.5); White Blood Cell Count 3.2 10^3/uL (4.8-10.8)
[2024-07-13 12:07] LABS: Blood Urea Nitrogen 16 mg/dl (9-20); Calcium 9.1 mg/dl (8.4-10.2); Carbon Dioxide 28 mmol/L (22-30); Chloride 102 mmol/L (98-107); Glucose 80 mg/dl (70-99); Potassium 4.1 mmol/L (3.5-5.1); Sodium 138 mmol/L (135-145); eGFR > 60.00
[2024-07-13 13:42] VITALS: BMI 24.3
[2024-07-16] VITALS (16 sets, daily range): BP systolic 94–132; BP diastolic 55–82; BMI 24.3; BMI 24.4
[2024-07-16] MEDS: NORMOSOL-R/PLASMALYTE-A 1000 IV (12:32)
--- NOTE | 2024-07-16 15:54 | W.IMMPOSTOP ---
Surgical Immed Post Op Note
-
Primary Surgeon: Ciarrafer
Assisting Surgeon: none
Pre-op Diagnosis: BPH, bladder diveticulum
Post-op Diagnosis: same
Procedure Performed: TURP
Anesthesia Type: gen
Specimen / Cultures: chips
Estimated Blood Loss: 1cc
Complications: none
Operative Findings: slight undermining of bladder neck - catheter guide required for final deluca placement
[2024-07-16] MEDS: DETROL LA 4 MG PO (16:33)
[2024-07-16] MEDS: DILAUDID 0.25 MG IV (16:33)
[2024-07-16] MEDS: LR 1000 IV (17:14)
--- NOTE | 2024-07-16 20:43 | PTCARENOTE ---
Pt arrive to [facility] at 2020 from PACU in a bed with a CBI infusing. Light pink urine output. Head to toe assessed. Admission questions answered. Pt oriented to room and call jiang. Bed locked and in lowest position. Care ongoing.
--- NOTE | 2024-07-16 21:12 | PTCARENOTE ---
pt transported to rm [id number] via bed. CBI infusing w/o difficulty, MISSY Brooks in room to accept pt
[2024-07-16] MEDS: PEPCID 40 MG PO (22:29)
[2024-07-16] MEDS: PERCOCET 5/325 1 TABLET PO (23:38)
[2024-07-17 02:45] VITALS: BP 104/62
[2024-07-17] MEDS: LR 1000 IV (02:47)
[2024-07-17 06:41] LABS: Hematocrit 34.7 % (39.0-52.0); Hemoglobin 11.7 g/dL (13.0-18.0)
[2024-07-17 07:00] VITALS: BP 105/77
[2024-07-17 07:25] LABS: Blood Urea Nitrogen 17 mg/dl (9-20); Calcium 7.9 mg/dl (8.4-10.2); Carbon Dioxide 25 mmol/L (22-30); Chloride 104 mmol/L (98-107); Estimated Creatinine Clearance 84 ml/min; Glucose 84 mg/dl (70-99); Sodium 137 mmol/L (135-145); eGFR > 60.00
[2024-07-17 07:31] LABS: Potassium 3.8 mmol/L (3.5-5.1)
[2024-07-17] MEDS: PROSCAR 5 MG PO (08:20)
[2024-07-17] MEDS: FLOMAX 0.4 MG PO (08:20)
[2024-07-17] MEDS: PROTONIX 40 MG PO (08:20)
--- NOTE | 2024-07-17 09:10 | W.PN.URO.CBU ---
Today's Communication / Plan
-
TOV
Discharge
Assessment / Plan
-
68M with BPH, bladder diverticulum
POD 1 s/p TURP
- Remove deluca for TOV
- Discharge
Diagnosis
-
Date of Service: July 17, 2024
-
Patient Diagnosis: BPH
Bladder diverticulum
Post Op Day:
Subjective
-
No spasms or pain
No hematuria overnight
Objective
-
Vital Signs
Temp Pulse Resp BP Pulse Ox
97.6 F 58 16 105/77 97
07/17/24 07:00 07/17/24 07:00 07/17/24 07:00 07/17/24 07:00 07/17/24 07:00
Intake and Output
07/16/24 07/17/24 07/18/24
06:59 06:59 06:59
Intake Total 3565 / 3565
Output Total 1200 / 1200
Balance 2365 / 2365
Intake:
Oral fluids 1790 / 1790
IV fluids (Total) 1775 / 1775
LR 125 / 125
Normosal 400 / 400
Output:
True Urine Output from CBI 1200 / 1200
Laboratory Results
07/17/24 04:44
07/17/24 04:44
Physical Exam
-
General - well developed, well nourished, no acute distress
Chest - clear
- deluca in place, clear urine with CBI off
[2024-07-17] MEDS: Pyridium 200 MG PO (09:52)
[2024-07-17 10:50] VITALS: BP 117/71
--- NOTE | 2024-07-17 14:11 | CM ---
Patient seen at bedside. Patient states that he plans on discharge home today with family supports. Patient states that he lives with his in a 2 story home. Patient PCP is Dr. Rankin and he uses the [facility] on [facility]. Patient stated
he did not anticipate any discharge needs at this time. Patient stated that he is independent of ADL's and IADL's. CM will continue to follow for discharge planning needs.
Plan; home with no needs. watch for possible deluca/VN need.
[2024-07-17 14:53] VITALS: BP 113/76
--- NOTE | 2024-07-17 16:35 | PTCARENOTE ---
[place] catheter was removed this morning as ordered.The patient has been voiding only small amounts totaling 250ml. in 6 hours .He has been having some pain with urination during the last hour. The bladder scan showed greater than 411ml. Dr. Gupta
was notified via [place] [employer].I also spoke to .One of the doctors will be over to replace the catheter.
--- NOTE | 2024-07-17 17:20 | W.PN.UPDATE ---
Update Note
Progress Note Update
pt having increasing difficulty voiding- more bloody
pvr by scan > 400cc
[address] nonlatex cath replaced with cath guide
450cc of pyridium colored urine drained
plan
observe overnight
plan to discharge tomorrow with cath and outpt TOV
[2024-07-17 19:00] VITALS: BP 124/84
[2024-07-17] MEDS: PEPCID 40 MG PO (21:23)
[2024-07-17 23:00] VITALS: BP 120/69
--- NOTE | 2024-07-18 07:00 | W.PN.URO.CBU ---
Today's Communication / Plan
-
discharge home with catheter
Assessment / Plan
-
68M with BPH, bladder diverticulum
POD 2 s/p TURP
deluca re-insertion 07/17 for retention
home today with cath
return to office saturday for removal and TOV
instructions and plan reviewed with patient
Diagnosis
-
Date of Service: July 18, 2024
-
Patient Diagnosis: BPH
Bladder diverticulum
Post Op Day:
TURP 07/16
Subjective
-
pt stable overnight after cath re-insertion
urine alex- no clots
Objective
-
Vital Signs
Temp Pulse Resp BP Pulse Ox
98.2 F 64 14 120/69 96
07/17/24 23:00 07/17/24 23:00 07/17/24 23:00 07/17/24 23:00 07/17/24 23:00
Intake and Output
07/17/24 07/18/24 07/19/24
06:59 06:59 06:59
Intake Total 3565 / 3565 960 / 960
Output Total 1200 / 1200 3950 / 3950
Balance 2365 / 2365 -2990 / -2990
Intake:
Oral fluids 1790 / 1790 960 / 960
IV fluids (Total) 1775 / 1775
LR 125 / 125
Normosal 400 / 400
Output:
Urine, Deluca 3950 / 3950
True Urine Output from CBI 1200 / 1200
Other:
Number of approximated SMALL 1
amounts of urine
Laboratory Results
07/17/24 04:44
07/17/24 04:44
Review of Systems
-
Constitutional: Fatigue
Respiratory: No Symptoms
Cardiac: No Symptoms
Abdomen/GI: No Symptoms
Physical Exam
-
General - no acute distress
Abdomen - soft, non-tender
Genitalia - normal- [address] way [address]
[2024-07-18 07:02] VITALS: BP 131/73
[2024-07-18] MEDS: PROSCAR 5 MG PO (07:58)
[2024-07-18] MEDS: PROTONIX 40 MG PO (07:58)
[2024-07-18] MEDS: FLOMAX 0.4 MG PO (07:58)
[2024-07-18] MEDS: Pyridium 200 MG PO (10:13)
[2024-07-18 10:55] VITALS: BP 133/80
--- NOTE | 2024-07-18 11:33 | CM ---
Patient seen at bedside. Patient for discharge home today and no needs anticipated. CM will continue to follow for discharge planning needs.
Plan; home with no needs anticipated.
== END 2024-07-18 12:36 | disposition home or self-care (01) ==
LOC: SDS 06:46
PROVIDERS: ATTENDING PHYSICIAN Urology; FAMILY PHYSICIAN Family Medicine
DX: D29.1 Benign neoplasm of prostate (principal)
CPT/HCPCS: 52601; 88305; 36415; 80048; 85014; 85018; 85027; 86850; 86900; 86901

== ENCOUNTER → 2024-09-08 07:27 | Outpatient (REF) | payer BC, SELFPAY | LOC: PAVMRI 07:27 | PROVIDERS: ATTENDING PHYSICIAN Specialist; FAMILY PHYSICIAN Family Medicine | DX: G51.31 Clonic hemifacial spasm, right (principal) | CPT/HCPCS: 70553; A9575 ==

== ENCOUNTER → 2025-05-21 08:24 | Outpatient (REF) | payer MEDICARE, OTHER, SELFPAY ==
[2025-05-21 09:39] LABS: Hematocrit 40.0 % (39.0-52.0); Hemoglobin 13.4 g/dL (13.0-18.0); Mean Corp Hgb Conc. 33.5 g/dL (33.0-37.0); Mean Corpuscular Volume 99.5 fL (80.0-94.0); Nucleated Red Blood Cells % 0 % (-); Platelet Count 269 10^3/uL (130-400); Red Cell Dist. Width 12.6 % (11.5-14.5)
[2025-05-21 10:19] LABS: Blood Urea Nitrogen 18 mg/dl (9-20); Calcium 9.0 mg/dl (8.4-10.2); Carbon Dioxide 26 mmol/L (22-30); Chloride 107 mmol/L (98-107); Glucose 82 mg/dl (70-99); Potassium 4.2 mmol/L (3.5-5.1); Sodium 139 mmol/L (135-145); eGFR > 60.00
== END ==
LOC: REG 08:24
PROVIDERS: ATTENDING PHYSICIAN Surgery; FAMILY PHYSICIAN Family Medicine
DX: K43.2 Incisional hernia without obstruction or gangrene (principal); Z01.812 Encounter for preprocedural laboratory examination
CPT/HCPCS: 36415; 80048; 85025

== ENCOUNTER → 2025-06-03 07:28 | Outpatient (REF) | payer MEDICARE, OTHER, SELFPAY | LOC: RAD 07:28 | PROVIDERS: ATTENDING PHYSICIAN Surgery; FAMILY PHYSICIAN Family Medicine | DX: K43.2 Incisional hernia without obstruction or gangrene (principal) | CPT/HCPCS: 74177; Q9967 ==